=== PATIENT | female | born 1980 | race Hispanic/Latino ===

== ENCOUNTER 2017-11-30 21:02 | Emergency (ER) | payer OTHER, SELFPAY ==
[2017-11-30 21:11] VITALS: BP 128/75; PULSE 72; RESP 16; TEMP 36.2; O2SAT 100; BMI 26.4
[2017-11-30 23:05] VITALS: BP 128/75; PULSE 67; RESP 16; TEMP 37.2; O2SAT 99; BMI 26.4
[2017-11-30 23:19] VITALS: BP 111/67; PULSE 67; RESP 16; TEMP 37.2; O2SAT 99
--- NOTE | 2017-12-01 00:14 | ED.ABDPAIN ---
HPI - Abdominal Pain General Chief Complaint: Abdominal Pain Stated Complaint: LEFT SIDE ABD PAIN LUMP Time Seen by Provider: 11/30/17 21:42 Source: patient Mode of arrival: ambulatory Limitations: no limitations History of Present Illness HPI narrative: Patient is a 37-year-old female here for evaluation of pain and a lump on her left upper abdomen. She states that she noticed the pain approximately 1 month ago when she was on her menstrual cycle. She states that since then she felt that has gotten larger and then has become more painful over the past couple days. No change in bowel or urine habits. No skin changes. No prior surgeries. Has not tried anything for prior to arrival. Review of Systems Constitutional Denies fever(s) and Denies headache(s) ENT Ears, Nose, Mouth, and Throat: Denies vertigo, Denies dizziness and Denies headache(s) Cardiovascular Denies chest pain and Denies dyspnea Respiratory Denies dyspnea Gastrointestinal Gastrointestinal: Reports abdominal pain Comments: Lump in her left upper abdomen Genitourinary Denies abnormal vaginal bleeding and Denies dysuria Musculoskeletal Denies myalgias and Denies arthralgias Integumentary/Breasts Denies lesions and Denies rash Neurologic Denies vertigo, Denies dizziness and Denies headache(s) Hematologic/Lymphatic Denies easy bleeding and Denies easy bruising [facility] Medical History Fibromyalgia (Acute) Surgical History No pertinent past surgical history (Acute) Social History Smoking Status: Never smoker Exam Initial Vital Signs Initial Vital Signs: Vital Signs Temperature 97.2 F L 11/30/17 21:11 Pulse Rate 72 11/30/17 21:11 Respiratory Rate 16 11/30/17 21:11 Blood Pressure 128/75 H 11/30/17 21:11 Pulse Oximetry 100 11/30/17 21:11 Const General: cooperative, healthy appearing, comfortable, well developed, well groomed and No acute distress Orientation: alert, awake and oriented x3 Resp Effort & Inspection: normal respiratory effort Auscultation: clear to auscultation bilaterally Cardio Rate: regular rate Rhythm: regular rhythm Pulses: radial pulses present GI Inspection: normal to inspection and non-distended Palpation: soft, No firm, mass (Patient with a approximately 8 cm well defined soft tumor her left upper quadrant over the lower left ribs.) and tender Back/Spine/Pelvis Back: No CVA tenderness Skin Lesions: no lesions Rashes: no rashes Neuro General: alert, awake and oriented x3 Psych Appearance: grossly normal and well kempt Course Vital Signs - 8 hr 11/30/17 21:11 11/30/17 23:05 11/30/17 23:19 Temperature 97.2 F L 98.9 F 98.9 F Pulse Rate 72 67 67 Respiratory Rate 16 16 16 Blood Pressure 128/75 H 128/75 H Blood Pressure [Left Arm] 111/67 Pulse Oximetry 100 99 99 MDM - Abdominal Pain MDM Narrative Medical decision making narrative: Patient very well appearing. Does not have a surgical abdomen. Has a soft well demarcated superficial tumor in the left upper quadrant over the lower ribs on the side that appears to be consistent with a lipoma secondary to the physical exam. No overlying skin changes. No splenomegaly. No trauma. Will hold on further workup for now. I discussed all this with the patient. She was given return precautions. She expressed understanding and agreement with plan. Discharge Plan Departure Patient Disposition: Home Clinical Impression: Abdominal pain Discharge Date/Time: 12/01/17 00:17 Interventions: ED Discharge Assessment Last Done: 12/01/17 00:17 Instructions: Lipoma, DI for Abdominal Pain-Adult Activity Restrictions/Additional Instructions: Your physical exam today is consistent with a lipoma. Recommend that you contact your primary care doctor next week to schedule a follow-up appointment to discuss the indications for an ultrasound and or follow-up with General surgery. You can take anti-inflammatories for any pain. Return to the emergency department for any new or worsening symptoms
== END 2017-12-01 00:17 | disposition home or self-care (01) ==
PROVIDERS: Emergency Provider Emergency Medicine
DX: R10.9 Unspecified abdominal pain (principal)
CPT/HCPCS: 99282